=== PATIENT | male | born 1985 | race African-American/Black ===

== ENCOUNTER 2016-11-19 08:32 | Emergency (ER) | payer OTHER ==
--- NOTE | ~2016-11-19 | EKG ---
PATIENT: FARTUN CHOUDHURY UNIT #: [id number] Ventricular Rate: 59 BPM Atrial Rate: 59 BPM P-R Interval: 174 ms QRS Duration: 84 ms Q-T Interval: 412 ms QTC Calculation(Bezet): 407 ms P [place]: 21 degrees Calculated R [place]: -17 degrees Calculated T [place]: 0 degrees Diagnosis Line: Sinus bradycardia with sinus arrhythmia Diagnosis Line: Otherwise normal ECG Diagnosis Line: No previous ECGs available Diagnosis Line: Confirmed by DAVID BETH MD ([id number]) on Diagnosis Line: 11/21/2016 2:14:42 PM INTERPRETING MD: IGNACIA SQUIRES
[~2016-11-19 08:32] MED LIST: AFRIN3 ML; MEDROL DOSEPAK4 MG PO; NAPROXEN; ROBAXIN 750750 M1 PO; TYLENOL #3 PO; ZYRTEC D
[2016-11-19] MEDS ORDERED: NO MEDICATIONS (08:34)
[2016-11-19 09:10] LABS: URINE SOURCE CLEAN CATCH
[2016-11-19 09:12] LABS: URINE APPEARANCE CLEAR; URINE BILIRUBIN NEG (NEG); URINE BLOOD NEG (NEG); URINE COLOR YELLOW; URINE GLUCOSE NEG (NORM); URINE KETONE NEG (NEG); URINE LEUKOCYTE ESTERASE NEG (NEG); URINE NITRATE NEG (NEG); URINE PROTEIN NEG (NEG); URINE SPECIFIC GRAVITY 1.025 (1.003-1.035); URINE UROBILINOGEN 0.2 MG/DL (NORM)
[2016-11-19 09:14] LABS: BASOPHIL# 0.1 X10e3 (0-0.3); BASOPHIL% 1.3 % (0-2.5); EOSINOPHIL# 0.1 X10e3 (0-0.7); EOSINOPHIL% 1.3 % (0.0-7.0); HEMOGLOBIN 15.7 gm/dL (13.0-16.0); LYMPHOCYTE# 2.1 X10e3 (1.0-3.5); LYMPHOCYTE% 49.5 % (17.0-45.0); MEAN CELL VOLUME 84.1 FL (83-96); MEAN CORPUSCULAR HEMOGLOBIN 29.3 PG (28-34); MEAN CORPUSCULAR HGB CONC 34.9 g/dL (30-36); MEAN PLATELET VOLUME 8.4 FL (6.5-11.5); MONOCYTE# 0.2 X10e3 (0-1.0); MONOCYTE% 5.2 % (3.0-12.0); NEUTROPHIL# 1.8 X10e3 (1.5-7.1); NEUTROPHIL% 42.7 % (40-75); PLATELET COUNT 161 X10e3 (140-420); RED BLOOD COUNT 5.35 X10e (3.90-5.60); RED CELL DISTRIBUTION WIDTH 13.2 % (11.0-15.5); WHITE BLOOD COUNT 4.3 X10e3 (4.0-10.5)
[2016-11-19 09:15] LABS: DIFF IND NO; MICRO INDICATED? NO
[2016-11-19 09:31] LABS: BUN/CREATININE RATIO 12.72; CALCIUM SERUM 9.2 mg/dL (8.4-10.2); CREATININE SERUM 1.1 mg/dL (0.6-1.4); GLOM FILT RATE Estimated 103.1 mL/min (>60); POTASSIUM 3.7 mmol/L (3.5-5.1)
[2016-11-19 09:32] LABS: POC - CKMB 1.8 ng/mL (0.0-7.9); POC - TROPONIN <0.05 ng/mL (<=0.05)
== END 2016-11-19 10:35 | disposition home or self-care (01) ==
LOC: SED 08:32
PROVIDERS: Emergency Medicine
DX: I10 Essential (primary) hypertension (principal); R42 Dizziness and giddiness; F17.200 Nicotine dependence, unspecified, uncomplicated
CPT/HCPCS: 36415; 80048; 81003; 82553; 84484; 85025; 93005; 99284